=== PATIENT | female | born 1985 | race Caucasian/White ===

== ENCOUNTER → 2017-07-16 | Outpatient (CLI) | payer OTHER | LOC: FIMAGING 12:54 | PROVIDERS: ATTEND Obstetrics & Gynecology | DX: O36.8220 Fetal anemia and thrombocytopenia, second trimester, not applicable or unspecified (principal); O99.282 Endocrine, nutritional and metabolic diseases complicating pregnancy, second trimester; E80.4 Gilbert syndrome; Z3A.20 20 weeks gestation of pregnancy ==

== ENCOUNTER → 2017-08-15 | Outpatient (CLI) | payer OTHER | LOC: FIMAGING 09:19 | PROVIDERS: ATTEND Obstetrics & Gynecology | DX: O09.892 Supervision of other high risk pregnancies, second trimester (principal); E80.4 Gilbert syndrome; D69.6 Thrombocytopenia, unspecified; Z3A.24 24 weeks gestation of pregnancy ==